=== PATIENT | female | born 1970 | race Caucasian/White ===

== ENCOUNTER 2019-12-05 02:15 | Emergency (ER) | payer BC, MEDICAID, SELFPAY ==
--- NOTE | ~2019-12-05 | XR_ITS ---
EXAMINATION: XR chest 2V 12/05/2019 04:00 INDICATION: Midsternal chest pain, shortness of breath and cough PROCEDURE: 2 view chest COMPARISON: No prior studies for comparison. FINDINGS: The lungs are clear. The cardiomediastinal silhouette is within normal limits. There are no pleural effusions. There is no pneumothorax suspected. There is dextroscoliosis of the thoracic spine. IMPRESSION: 1: NO ACUTE CARDIOPULMONARY DISEASE. Reviewed, dictated and finalized at location A.
[2019-12-05 02:23] VITALS: BP 151/77; PULSE 66; RESP 16; TEMP 36.2; O2SAT 99
--- NOTE | 2019-12-05 02:35 | ED.URI ---
HPI - URI/Sore Throat General Chief Complaint: Upper Respiratory Infection Stated Complaint: cough, cp, congestion Time Seen by Provider: 12/05/19 02:34 Source: patient and RN notes reviewed Mode of arrival: ambulatory Limitations: no limitations History of Present Illness HPI Narrative: A 49 y/o female presents to the ED with multiple URI symptoms for the past week. She reports that she has been having sinus drainage, nasal congestion, SOB, dizziness, nausea, and a cough for the past week. She states that she felt like she was getting better but that tonight she was eating dinner when she choked and has been having CP with inspiration ever since. She notes that she has been taking Sudafed for her symptoms which have been helping to alleviate them. She also notes that she has been noticing that her toes will randomly turn purple. She denies any vomiting or ABD pain. MD elicited complaint: other (Multiple) Onset (ago): week(s) (1) Relieving factors: OTC cold medicine (Sudafed) Associated symptoms: nasal congestion, cough, chest pain (with inspiration), shortness of breath, nausea and other (sinus drainage, dizziness, and her toes have been becoming purple randomly) Treatments prior to arrival: cold medicine (Sudafed) Related Data Allergies Allergy/AdvReac Type Severity Reaction Status Date / Time No Known Allergies Allergy Mild Unverified 10/31/16 17:20 Review of Systems Review of Systems: All systems reviewed & are unremarkable except as noted in HPI and below ENT: Reports nasal congestion and Reports other (sinus drainage) Respiratory: Respiratory: Reports cough, Reports pain on inspiration (CP) and Reports dyspnea Gastrointestinal: Gastrointestinal: Denies abdominal pain, Reports nausea and Denies vomiting Neurologic: Reports dizziness PMFSH Past Medical History Medical History (Updated 12/05/19 @ 04:45 by Paulette Carrera MD) Anemia Surgical History Surgical History (Updated 12/05/19 @ 02:50 by Ko Jo) History of endometrial ablation Previous section Social History Social History (Updated 12/05/19 @ 02:50 by Ko Jo) Smoking status: Never smoker Gender identity (if verbalized by the patient): Female Exam Const: General: cooperative, no acute distress and alert Nutritional Appearance: well nourished Orientation/consciousness: patient oriented x3 Limitations: no limitations HENMT: Mouth: Yes lip normal and Yes moist mucous membranes Resp: Effort & Inspection: normal respiratory effort Auscultation: clear to auscultation bilaterally Cardio: Rate: regular rate Rhythm: regular rhythm GI: GI Palp: Yes Soft to palpation and No Tenderness to palpation present (GI) Auscultation: normal bowel sounds Skin: General skin exam: normal color Neuro: General: patient oriented x3 Cognition (Neuro): normal cognition Speech: normal speech Extrem: General: normal to inspection, full ROM and no clubbing, cyanosis or edema Psych: Mental Status: mental status grossly normal Affect: normal affect Attitude: cooperative Course Course Emergency Course: Patient feeling better after nebulizer treatment. No findings to suggest pneumonia on chest x-ray. Influenza testing negative. Patient will be treated for bronchitis with Mucinex and albuterol. Patient advised to follow-up with on-call primary care physician for further care. Patient reports urinary stress incontinence since her endometrial ablation. Advised follow-up with her MONOMER PURIFICATION OPERATOR for that issue. Urinalysis ordered as patient on reevaluation requesting urine be tested as she has been having urinary frequency. Vital Signs Vital signs: Vital Signs Temperature 97.2 F L 12/05/19 02:23 Pulse Rate 66 12/05/19 02:23 Respiratory Rate 16 12/05/19 02:23 Blood Pressure 151/77 H 12/05/19 02:23 Pulse Oximetry 99 12/05/19 02:23 Temperature 97.2 F L 12/05/19 02:23 Pulse Rate 65 12/05/19 03:45 Respiratory Rate 20
--- NOTE | 2019-12-05 02:42 | ECG_ITS ---
Measurements Intervals [place] Rate: 58 P: 28 MN: 167 QRS: 17 QRSD: 96 T: 17 QT: 425 QTc: 418 Interpretive Statements SINUS BRADYCARDIA INCOMPLETE RIGHT BUNDLE BRANCH BLOCK BORDERLINE R WAVE PROGRESSION, ANTERIOR LEADS BORDERLINE ECG Electronically Signed On 12-05-2019 7:10:59 CDT by Tr Wall D.O.
[2019-12-05] MEDS: ALBUTEROL SULFATE NEB 2.5 MG/0.5 ML INH 5 MG INHALATION (02:59)
[2019-12-05] MEDS: IPRATROPIUM BR 0.02% INH SOLN 0.5 MG/2.5 ML VIAL INHALATION (03:00)
[2019-12-05 03:01] VITALS: PULSE 62; RESP 18
[2019-12-05 03:10] VITALS: PULSE 70; RESP 18
[2019-12-05 03:16] LABS: Basophils Absolute Auto 0.1 K/mm3 (0.0-0.1); Basophils Percent Auto 0.7 % (0.2-1.2); Eosinophils Absolute Auto 0.4 K/mm3 (0-0.3); Eosinophils Percent Auto 4.3 % (0-4.4); Hematocrit 38.9 % (37.0-47.0); Hemoglobin 13.1 g/dL (12.0-15.0); Immature Granulocyte Absolute 0.04 K/mm3 (0.00-0.031); Immature Granulocyte Percent A 0.4 % (0-0.5); Lymphocytes Absolute Auto 2.52 K/mm3 (0.9-3.2); Lymphocytes Percent Auto 26.4 % (18.3-44.2); Mean Corpuscular HGB Conc 33.7 g/dl (32-36); Mean Corpuscular Hemoglobin 29.4 pg (26-34); Mean Corpuscular Volume 87.4 fl (80-100); Mean Platelet Volume 9.1 fl (7.4-10.4); Monocytes Percent Auto 10.6 % (2.6-8.5); Neutrophils Absolute Auto 5.5 K/mm3 (1.3-6.7); Neutrophils Percent Auto 57.6 % (45.5-73.1); Platelet Count Result 257 k/mm3 (150-375); Red Blood Count 4.45 M/mm3 (4.2-5.4); Red Cell Distribution Width 13.3 % (11.5-14.5); White Blood Count 9.6 K/mm3 (4.5-10.0)
[2019-12-05 03:21] LABS: Alanine Aminotransferase 30 U/L (4-35); Albumin Level 4.1 g/dL (3.5-5.1); Alkaline Phosphatase 74 U/L (38-126); Aspartate Amino Transferase 25 U/L (14-36); Bilirubin,Total 0.4 mg/dL (0.2-1.3); Blood Urea Nitrogen 15 mg/dL (7-17); Calcium 9.3 mg/dL (8.4-10.2); Carbon Dioxide 25 mmol/L (22-30); Chloride 105 mmol/L (98-107); Estimated Glomerular Filt Rate > 60; Glucose 105 mg/dL (65-105); Potassium 3.8 mmol/L (3.4-5.0); Sodium 137 mmol/L (137-145)
[2019-12-05 03:33] LABS: Troponin I < 0.012 ng/mL (0.000-0.034)
[2019-12-05 03:45] VITALS: BP 130/67; PULSE 65; RESP 20; O2SAT 98
[2019-12-05 04:59] LABS: Add Urine Microscopic? YES; Appearance Urine Clear (Clear); Bilirubin Urine Negative (Negative); Blood Urine 1+ (Negative); Color Urine Straw (Yellow); Glucose Urine UA Negative (Negative); Ketones Urine Negative (Negative); Leukocyte Esterase Ur Negative LEU/UL (Negative); Nitrate Urine Negative (Negative); Protein Urine Negative (Negative); RBC Urine 0-2 /hpf (0-2); Specific Grav Ur 1.016 (1.001-1.035); Squamous Epithelial Cell Urine Rare /hpf (Few); Urobilinogen Urine Negative mg/dL (<2.0); WBC Urine 0-3 /hpf
[2019-12-05 05:18] VITALS: BP 130/82; PULSE 60; RESP 20; O2SAT 100
== END 2019-12-05 05:20 | disposition home or self-care (01) ==
PROVIDERS: Emergency Provider Emergency Medicine
DX: J40 Bronchitis, not specified as acute or chronic (principal); Z86.2 Personal history of diseases of the blood and blood-forming organs and certain disorders involving the immune mechanism; R00.1 Bradycardia, unspecified; I45.10 Unspecified right bundle-branch block; R94.31 Abnormal electrocardiogram [ECG] [EKG]
CPT/HCPCS: 36415; 71046; 80053; 81001; 84484; 85025; 87804; 93005; 94640; 99284

== ENCOUNTER 2020-09-25 17:41 | Outpatient (CLI) | payer BC, MEDICAID, SELFPAY ==
--- NOTE | ~2020-09-25 | MM_ITS ---
EXAMINATION: MM screening pietro BI w rigoberto HISTORY: Screening TECHNIQUE: Craniocaudal and mediolateral oblique 3-D tomosynthesis images were obtained and synthetic 2-D images were generated. CAD analysis was submitted and interpreted. COMPARISON: Comparison to multiple prior studies sequentially, with oldest reviewed study dated 10/2011. BREAST PARENCHYMAL COMPOSITION: There are scattered areas of fibroglandular density. FINDINGS: There is no evidence of suspicious mass, calcification, or architectural distortion to sugg est malignancy in either breast. There has been no suspicious interval change. IMPRESSION: 1. No mammographic evidence of malignancy. 2. Recommend routine screening mammography in one year. BI-RADS Category 1: Negative Reviewed, dictated and finalized at location A. ULIZING MACHINE OPERATOR
== END 2020-09-25 17:42 | disposition home or self-care (01) ==
LOC: ANHIMG 17:49
PROVIDERS: Visit Provider Obstetrics & Gynecology
DX: Z12.31 Encounter for screening mammogram for malignant neoplasm of breast (principal)
CPT/HCPCS: 77063; 77067

== ENCOUNTER → 2020-10-27 09:54 | Outpatient (CLI) | payer MEDICAID, SELFPAY ==
--- NOTE | ~2020-10-27 | US_ITS ---
US abdomen complete DATE: 10/27/2020 10:17 INDICATION: Right upper quadrant abdominal pain. Weight gain. TECHNIQUE: Real-time imaging of the abdomen, Doppler analysis COMPARISON: None FINDINGS: No hepatic space-occupying mass lesion is evident. Normal hepatopedal portal venous flow di rection. There is a fixed approximately 5 mm soft tissue density along the posterior wall of gallblad clare without shadowing, likely a small polyp. No evidence of gallstones, gallbladder wall thickening o r pericholecystic fluid collection. Negative sonographic Guajardo's sign. Common bile duct measures 3 mm, normal. The spleen measures up to 14.4 cm dimension, suggesting splenomegaly. The pancreatic tail is obscured by bowel gas. The pancreas otherwise appears normal. No renal mass lesion or hydronephrosis. Right kidney measures approximately 12.2 cm length, left kidn ey 12.6 cm. Normal caliber of the abdominal aorta. The inferior vena cava is unremarkable. IMPRESSION: Probable 5 mm gallbladder polyp Borderline splenic size Reviewed, dictated and finalized at Location [facility]. Reviewed, dictated and finalized at location A. NURSE
== END ==
DX: R10.11 Right upper quadrant pain (principal)
CPT/HCPCS: 76700

== ENCOUNTER 2022-07-19 10:53 | Emergency (ER) | payer OTHER, SELFPAY ==
--- NOTE | ~2022-07-19 | XR_ITS ---
EXAMINATION: XR chest 2V DATE: 07/19/2022 11:37 INDICATION: Cough and fever TECHNIQUE: Frontal and lateral views of the chest are obtained COMPARISON: 12/05/2019 FINDINGS: The lungs are free of acute opacities. No pleural effusion or pneumothorax. The cardiomedia stinal silhouette is normal. There is thoracic dextroscoliosis and moderate spondylosis. IMPRESSION: 1. No acute cardiopulmonary abnormality. Reviewed, dictated and finalized at location A.
[2022-07-19 11:11] VITALS: BP 137/101; PULSE 82; RESP 12; TEMP 36.6; O2SAT 96
--- NOTE | 2022-07-19 11:17 | ED.URI ---
HPI - URI/Sore Throat General Chief Complaint: Upper Respiratory Infection Stated Complaint: cough-thinks she has pneumonia Time Seen by Provider: 07/19/22 11:05 History of Present Illness HPI Narrative: Patient is a 52-year-old female here for evaluation of cough for the past 3 days. Patient states the cough is dry in nature, is worse at nighttime. Feels similar to when she had pneumonia in the past. Reports chills, but has not taken her temperature. No chest pain, shortness of breath, abdominal pain, nausea or vomiting. No sick contacts. She has been taking Mucinex without significant relief of her symptoms. Has been taking Tylenol and ibuprofen and has not had chills since taking these medicines. Related Data Home Medications Medication Instructions Recorded Confirmed meloxicam 15 mg tablet 15 mg PO DAILY 06/23/22 06/23/22 Allergies Allergy/AdvReac Type Severity Reaction Status Date / Time No Known Allergies Allergy Mild Verified 06/23/22 10:55 Review of Systems Review of Systems: Gen: Denies fevers or chills Eyes: Denies eye pain or visual change ENT: Denies congestion Respiratory: Reports cough. Denies shortness of breath CV: Denies chest pain or palpitations GI: Denies abdominal pain nausea, emesis or diarrhea denies burning, urgency, frequency or hematuria Musculoskeletal: Denies back pain or muscle pain Neuro: Denies numbness, tingling, weakness or focal weakness Skin: Denies rash Except as documented, all other systems reviewed and negative PMFSH Past Medical History Medical History Anemia Encounter for screening examination for sexually transmitted disease HPV in female Screening mammogram, encounter for Surgical History Surgical History History of endometrial ablation (~05/2020) Previous section x2 Family History Family History Father Acute myocardial infarction Diabetes mellitus Hypertension Mother Thyroid disorder Social History Social History Smoking status: Never smoker Alcohol intake: current Drinks per week: 2 Substance use: never Substance use type: does not use Additional living arrangements comments: 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 CARDIOVASCULAR: Regular rate and rhythm without murmurs rubs or gallops. ABDOMINAL: Soft, nontender, nondistended, no rebound or guarding MUSCULOSKELETAl: Moves all extremities. No clubbing, cyanosis or edema. NEURO: Awake and alert. Following commands, speech normal, no focal deficits SKIN: Warm, dry. No rashes lesions or abrasions PSYCHIATRIC: Normal affect/mood Course Vital Signs Vital signs: Vital Signs Temperature 97.8 F 07/19/22 11:11 Pulse Rate 82 07/19/22 11:11 Respiratory Rate 12 07/19/22 11:11 Blood Pressure 137/101 H 07/19/22 11:11 Pulse Oximetry 96 07/19/22 11:11 Oxygen Delivery Room Air 07/19/22 11:11 Temperature 97.8 F 07/19/22 11:11 Pulse Rate 82 07/19/22 11:11 Respiratory Rate 12 07/19/22 11:11 Blood Pressure 137/101 H 07/19/22 11:11 Pulse Oximetry 96 07/19/22 11:11 Oxygen Delivery Room Air 07/19/22 11:11 MDM - URI/Sore Throat MDM Narrative Medical decision making narrative: 52-year-old female here for evaluation of upper respiratory symptoms for the past 3 days. She is nontoxic-appearing and has normal vital si
[2022-07-19] MEDS: BENZONATATE 100 MG CAPSULE 200 MG PO (11:22)
[2022-07-19 12:03] LABS: Influenza A QL RT-PCR Positive (Negative); Influenza B QL RT-PCR Negative (Negative); SARS-CoV-2 RNA PCR Negative
== END 2022-07-19 12:20 | disposition home or self-care (01) ==
PROVIDERS: Physician Assistant; Emergency Provider Emergency Medicine
DX: J10.1 Influenza due to other identified influenza virus with other respiratory manifestations (principal); Z86.2 Personal history of diseases of the blood and blood-forming organs and certain disorders involving the immune mechanism
CPT/HCPCS: 71046; 87502; 99283; A9270; C9803; U0003; U0005

== ENCOUNTER 2022-08-13 10:00 | Outpatient (RCR) | payer OTHER, SELFPAY ==
--- NOTE | 2022-07-04 12:36 | PTOPEVAL1 ---
Assessment and note entered by Lily Gooden, PT Evaluation Information Assessment Status Evaluation Diagnosis left knee pain Onset 06/08/22 Subjective Information Reports did a 5k was going to walk it but had to sabi after her niece who ran off. [place] hot water dumping down leg like the first meniscus injury. Reported Pain Level Pain Score 5: Self Report Additional Pain Score Comments Prior R knee meniscus injury 2016, had 3 shots and therapy, never had meniscus repaired. Reports she feels she injured her left knee protecting her right knee Assessment PT Clinical Summary Pt presents w/ c/o left knee pain after a 5k approx one month ago. States she felt the same sensation as when she tore her right knee meniscus 5 years ago. Reports of pain, timing of pain, positions of pain, and presentation suggestive also of left knee meniscus issue. Evaluation shows decreased strength LLE, decreased AROM extension, and significant gait abnormality as well as poor LE alignment including patellar tracking. Pt will benefit from physical therapy in order to address deficits, and improve pain, thus improving function. Plan of Care Interventions Electrical Stimulation,Gait Training,Hot Pack/Cold Pack,Manual Therapy,Neuro Re-education,Patient/ Caregiver Educati,Therapeutic Activities, Therapeutic Exercise,Self-Care/Home Management, Ultrasound,Other Other Interventions bracing PT Services Indicated Yes Treatment Frequency and 1-2x weekly x 6 weeks Duration These treatments will address the objective and functional deficits as defined above. The patient will be advanced safely and appropriately in order for the patient to progress towards his/her prior level of function. Additional exercises will be introduced and as well as a comprehensive home exercise program upon discharge, if needed, ?to ensure carryover of functional gains achieved in the clinic. This treatment plan has been reviewed and agreement upon by the patient.
--- NOTE | 2022-08-29 11:31 | PCPTNOTE ---
Patient called & cancelled scheduled appointment this date due to being called into work and then having a doctor's appt. Would be unable to make it to therapy today.
--- NOTE | 2022-09-04 11:44 | BUPTOPDC ---
Assessment and note entered by Lily Gooden, PT Evaluation Information Assessment Status Discharge - Pt Not Presen Diagnosis left knee pain Onset 06/08/22 Assessment PT Clinical Summary Pt attended 4 therapy sessions including evaluation over 8 week span of time. She called and cancelled her reassessment stating she would return to her orthopeadic doctor for further options. Thus she is being discharged from her current plan of care. Should she wish to return to therapy, new plan can be initiated with new prescription and evaluation. Plan of Care Discharge from therapy services.
--- NOTE | 2022-09-04 11:46 | BUPTOPDC ---
Assessment and note entered by Lily Gooden, PT Assessment Status Discharge - Pt Not Present Diagnosis left knee pain Onset 06/08/22 Assessment PT Clinical Summary Pt attended 4 therapy sessions including evaluation over 8 week span of time. She called and cancelled her reassessment stating she would return to her orthopeadic doctor for further options. Thus she is being discharged from her current plan of care. Should she wish to return to therapy, new plan can be initiated with new prescription and evaluation. Plan of Care Discharge from therapy services
== END 2022-09-08 09:36 | disposition home or self-care (01) ==
LOC: ANHHIPT 10:00
PROVIDERS: Visit Provider Nurse Practitioner
DX: M25.562 Pain in left knee (principal)
CPT/HCPCS: 97014; 97035; 97110; 97140; 97162; G0283

== ENCOUNTER 2022-12-04 17:31 | Outpatient (CLI) | payer OTHER, SELFPAY ==
--- NOTE | ~2022-12-04 | MM_ITS ---
EXAMINATION: MM screening pietro BI w rigoberto HISTORY: Screening mammogram TECHNIQUE: Craniocaudal, rotated lateral craniocaudal and mediolateral oblique 3-D tomosynthesis imag es were obtained and synthetic 2-D images were generated. CAD analysis was submitted and interpreted. COMPARISON: 09/25/2020, 06/02/2017, 04/04/2013 bilateral screening mammogram examinations BREAST PARENCHYMAL COMPOSITION: There are scattered areas of fibroglandular density. FINDINGS: There is no evidence of suspicious mass, calcification, or architectural distortion to sugg est malignancy in either breast. There has been no suspicious interval change. IMPRESSION: 1. No mammographic evidence of malignancy. 2. Recommend routine screening mammography in one year. BI-RADS Category 1: Negative Reviewed, dictated and finalized at location B. RING MACHINE OPERATOR
== END 2022-12-04 17:32 | disposition home or self-care (01) ==
LOC: ANHIMG 17:32
PROVIDERS: Visit Provider Obstetrics & Gynecology
DX: Z12.31 Encounter for screening mammogram for malignant neoplasm of breast (principal)
CPT/HCPCS: 77063; 77067

== ENCOUNTER 2024-02-01 10:01 | Outpatient (CLI) | payer OTHER, SELFPAY ==
--- NOTE | ~2024-02-01 | MM_ITS ---
EXAMINATION: MM screening pietro BI w rigoberto HISTORY: Screening mammogram TECHNIQUE: Craniocaudal and mediolateral oblique 3-D tomosynthesis images were obtained and synthetic 2-D images were generated. CAD analysis was submitted and interpreted. COMPARISON: 12/04/2022, 09/25/2020 bilateral screening mammogram examinations BREAST PARENCHYMAL COMPOSITION: Through FINDINGS: There is no evidence of suspicious mass, calcification, or architectural distortion to sugg est malignancy in either breast. There has been no suspicious interval change. IMPRESSION: 1. No mammographic evidence of malignancy. 2. Recommend routine screening mammography in one year. BI-RADS Category 1: Negative Reviewed, dictated and finalized at location B.
== END 2024-02-01 10:02 | disposition home or self-care (01) ==
LOC: ANHIMG 10:08
PROVIDERS: PCP Family Medicine; Visit Provider Obstetrics & Gynecology
DX: Z12.31 Encounter for screening mammogram for malignant neoplasm of breast (principal)
CPT/HCPCS: 77063; 77067

== ENCOUNTER 2024-04-19 11:26 | Outpatient (CLI) | payer OTHER, MEDICAID, SELFPAY ==
--- NOTE | ~2024-04-19 | US_ITS ---
US breast LT limited 04/19/2024 13:03 Indication: Pain left lateral chest wall lateral to the breast Procedure: High-resolution Limited soft tissue ultrasound of the area of palpable concern Comparison: No prior studies for comparison. Findings: Normal heterogeneous soft tissues without focal solid or cystic mass. Impression: 1: Normal soft tissue ultrasound of the left lateral chest in the area of palpable concern. No discre te mass. Reviewed, dictated and finalized at location B. Impression: 1: Normal soft tissue ultrasound of the left lateral chest in the area of palpa ble concern. No discrete mass.
== END 2024-04-19 11:27 | disposition home or self-care (01) ==
PROVIDERS: PCP Family Medicine; Visit Provider Family Medicine
DX: R92.323 Mammographic fibroglandular density, bilateral breasts (principal)
CPT/HCPCS: 76642